=== PATIENT | female | born 1985 | race Caucasian/White ===

== ENCOUNTER 2018-10-12 16:01 | Inpatient (IN) | payer OTHER ==
[~2018-10-12] VITALS: Ht 165.1 cm; Wt 117.0 kg
[2018-10-13] MEDS ORDERED: OXYTOCIN/0.9 % SODIUM CHLORIDE 1,000 ML IV SCH (03:25)
[2018-10-13] MEDS ORDERED: DINOPROSTONE 10 MG SUPP VG ONE (03:30)
[2018-10-13] MEDS ORDERED: TERBUTALINE SULFATE 1 MG/ML VIAL SUBCUT ONE (03:30)
[2018-10-13] MEDS ORDERED: NALBUPHINE HCL 10 MG/ML AMP IVP PRN (03:30)
[2018-10-13 04:05] VITALS: BP_SYST 114
[2018-10-13] MEDS: LR 1,000 ML IV SCH ×3 (04:11→19:00)
[2018-10-13 04:41] LABS: BASOPHILS % (AUTO) 0.4 % (0.0-2.0); EOSINOPHILS # (AUTO) 0.2 K/uL (0.0-0.4); EOSINOPHILS % (AUTO) 2.6 % (0.0-4.0); HEMATOCRIT 38.9 % (36-48); HEMOGLOBIN 12.8 g/dL (12.0-16.0); LYMPHOCYTES # (AUTO) 2.7 K/uL (1.0-5.5); LYMPHOCYTES % (AUTO) 30.4 % (20.5-51.5); MEAN CORPUSCULAR HEMOGLOBIN 31 pg (27-31); MEAN CORPUSCULAR HGB CONC 33 % (32-36); MEAN CORPUSCULAR VOLUME 93 fL (79.0-98.0); MONOCYTES # (AUTO) 0.8 K/uL (0.0-1.0); MONOCYTES % (AUTO) 9.3 % (1.7-9.3); NEUTROPHILS # (AUTO) 5.2 K/uL (1.8-7.7); NEUTROPHILS % (AUTO) 57.3 % (40.0-70.0); PLATELET COUNT (AUTO) 199 K/uL (130-430); RED BLOOD CELL COUNT(AUTO) 4.18 MIL/uL (4.2-6.2); RED CELL DISTRIBUTION WIDTH 13.3 % (9.0-15.0); WHITE BLOOD COUNT (AUTO) 8.9 K/uL (4.8-10.8)
[2018-10-13] MEDS ORDERED: fentaNYL CITRATE/PF 100 MCG/2 ML AMP ONE (16:57)
[2018-10-13] MEDS ORDERED: ROPIVACAINE 0.2% 100 ML ONE ×2 (16:58→23:24)
[2018-10-13] MEDS ORDERED: LR 500 ML IV ONE (18:19)
[2018-10-13] MEDS ORDERED: ePHEDrine sulfate 50 MG/ML VIAL IVP PRN (18:30)
[2018-10-13] MEDS ORDERED: fentaNYL CITRATE/PF 100 MCG/2 ML AMP EP ONE (18:30)
[2018-10-13] MEDS ORDERED: FENT2mCg/mL-ROPIVA0.2%/NS EPID 100 ML EP SCH (18:30)
[2018-10-14] MEDS: LR 1,000 ML IV SCH (03:17)
[2018-10-14] MEDS ORDERED: ROPIVACAINE 0.2% 100 ML ONE (05:16)
[2018-10-14] MEDS ORDERED: CEFAZOLIN 2 GM IVPB PREMIX 50 ML IV ONE (10:30)
[2018-10-14] MEDS ORDERED: LR 1,000 ML IV SCH ×2 (12:40→12:50)
[2018-10-14] MEDS ORDERED: ONDANSETRON HCL 4 MG/2 ML VIAL IVP PRN (12:45)
[2018-10-14] MEDS ORDERED: NALOXONE HCL 0.4 MG/ML AMP (NARCAN) IVP PRN (12:45)
[2018-10-14] MEDS ORDERED: KETOROLAC TROMETHAMINE 60 MG/2 ML VIAL IM PRN (12:45)
[2018-10-14] MEDS ORDERED: MORPHINE 4 MG/ML INJ. SYRINGE IVP PRN ×3 (12:45)
[2018-10-14] MEDS ORDERED: MORPHINE SULFATE 10MG/10ML PF AMP EP SCH (12:45)
[2018-10-14] MEDS ORDERED: METOCLOPRAMIDE HCL 10 MG/2 ML VIAL IVP PRN (12:45)
[2018-10-14] MEDS ORDERED: DIPHENHYDRAMINE INJ 50 MG/ML VIAL IM PRN (12:45)
[2018-10-14] MEDS ORDERED: OXYTOCIN/0.9 % SODIUM CHLORIDE 1,000 ML IV ONE ×2 (12:50→13:19)
[2018-10-14 12:58] VITALS: BP_SYST 108
[2018-10-14] MEDS ORDERED: OXYCODONE/ACETAMINOPHEN 5-325 TABLET PO PRN (13:00)
[2018-10-14] MEDS ORDERED: ANUSOL 1 EA SUPP.RECT (PREPARATION H) RC PRN (13:00)
[2018-10-14] MEDS ORDERED: RHO(D) IMMUNE GLOBULIN/MALTOSE 1500 UNITS/1.3 ML (WINHRO) IM PRN (13:00)
[2018-10-14] MEDS ORDERED: SENNOSIDES/DOCUSATE SODIUM 1 TAB TABLET(SENOKOT-S) PO PRN (13:00)
[2018-10-14] MEDS ORDERED: LANOLIN 7 GM OINT. TP PRN (13:00)
[2018-10-14] MEDS ORDERED: MEASLES,MUMPS&RUBELLA VACC/PF 12500 UNIT/0.5 ML VIAL SUBQ PRN (13:00)
[2018-10-14] MEDS ORDERED: DIPH-TET-PERTUS Vaccine 0.5 ML VIAL (ADACEL) I.M. PRN (13:00)
[2018-10-14] MEDS ORDERED: ACETAMINOPHEN 325 MG TABLET PO PRN (13:00)
[2018-10-14] MEDS ORDERED: BISACODYL 10 MG/SUPPOSITORY RC PRN (13:00)
[2018-10-14] MEDS: SIMETHICONE 80 MG TAB.CHEW PO PRN (19:58)
[2018-10-14] MEDS ORDERED: TEMAZEPAM 15 MG CAPSULE PO PRN (21:00)
[2018-10-14] MEDS: IBUPROFEN 600 MG TABLET PO SCH (23:42)
[2018-10-14] MEDS: CEFAZOLIN 1 GM IVPB PREMIX 50 ML IV SCH (23:43)
[2018-10-15] MEDS: LR 1,000 ML IV SCH (04:45)
[2018-10-15] MEDS: IBUPROFEN 600 MG TABLET PO SCH ×3 (06:02→17:47)
[2018-10-15] MEDS: CEFAZOLIN 1 GM IVPB PREMIX 50 ML IV SCH ×2 (06:02→12:08)
[2018-10-15 06:52] LABS: BASOPHILS % (AUTO) 0.4 % (0.0-2.0); EOSINOPHILS # (AUTO) 0.2 K/uL (0.0-0.4); HEMATOCRIT 30.7 % (36-48); HEMOGLOBIN 10.2 g/dL (12.0-16.0); LYMPHOCYTES % (AUTO) 18.4 % (20.5-51.5); MEAN CORPUSCULAR HEMOGLOBIN 31 pg (27-31); MEAN CORPUSCULAR HGB CONC 33 % (32-36); MEAN CORPUSCULAR VOLUME 94 fL (79.0-98.0); MONOCYTES # (AUTO) 1.1 K/uL (0.0-1.0); MONOCYTES % (AUTO) 9.6 % (1.7-9.3); NEUTROPHILS # (AUTO) 7.7 K/uL (1.8-7.7); NEUTROPHILS % (AUTO) 69.6 % (40.0-70.0); PLATELET COUNT (AUTO) 160 K/uL (130-430); RED BLOOD CELL COUNT(AUTO) 3.27 MIL/uL (4.2-6.2); RED CELL DISTRIBUTION WIDTH 13.9 % (9.0-15.0)
[2018-10-15] MEDS: SIMETHICONE 80 MG TAB.CHEW PO PRN ×3 (09:25→21:51)
[2018-10-15] MEDS: DOCUSATE SODIUM 100 MG CAPSULE PO PRN ×2 (09:25→21:51)
[2018-10-15] MEDS ORDERED: ROPIVACAINE 40 MG/20 ML AMP EP ONE (12:00)
[2018-10-15] MEDS: OXYCODONE/ACETAMINOPHEN 5-325 TABLET PO PRN (21:52)
[2018-10-16] MEDS: IBUPROFEN 600 MG TABLET PO SCH ×2 (00:34→06:23)
[2018-10-16] MEDS: DOCUSATE SODIUM 100 MG CAPSULE PO PRN (08:55)
[2018-10-16] MEDS: SIMETHICONE 80 MG TAB.CHEW PO PRN (08:55)
[2018-10-16] MEDS: OXYCODONE/ACETAMINOPHEN 5-325 TABLET PO PRN (08:56)
[2018-10-16] MEDS ORDERED: OXYTOCIN/0.9 % SODIUM CHLORIDE 20 UNITS/1,000 ML BAG IV ONE (11:25)
[2018-10-16] MEDS ORDERED: MIDAZOLAM HCL 5 MG/5 ML VIAL IVP ONE (11:25)
[2018-10-16] MEDS ORDERED: fentaNYL CITRATE/PF 100 MCG/2 ML AMP IVP ONE (11:25)
[2018-10-16] MEDS ORDERED: LR 1,000 ML IV.SOLN IV ONE (11:25)
[2018-10-16] MEDS ORDERED: ONDANSETRON HCL 4 MG/2 ML VIAL IVP ONE (11:25)
[2018-10-16] MEDS ORDERED: WATER FOR IRRIGATION,STERILE 1,000 ML IRRIG.SOLN IR ONE (11:25)
[2018-10-16] MEDS ORDERED: MORPHINE SULFATE 10MG/10ML PF AMP EP ONE (11:25)
== END 2018-10-16 15:13 | disposition home or self-care (01) | DRG 788 ==
LOC: SPU 10-13 03:00
PROVIDERS: ADMIT Obstetrics & Gynecology; ATTEND Obstetrics & Gynecology
PROC: 10D00Z1 Extraction of Products of Conception, Low, Open Approach (ICD-10-PCS; principal; 2018-10-14 11:00)
DX: O36.63X0 Maternal care for excessive fetal growth, third trimester, not applicable or unspecified (principal); J45.909 Unspecified asthma, uncomplicated; O62.0 Primary inadequate contractions; O99.52 Diseases of the respiratory system complicating childbirth; Z37.0 Single live birth; Z3A.39 39 weeks gestation of pregnancy
CPT/HCPCS: 36415; 85025; 86592; 86886; 86900; 86901; J0690; J1200; J1885; J2250; J2270; J2274; J2300; J2405; J2590; J2795; J3010; J7120